=== PATIENT | male | born 2005 | race Caucasian/White ===

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

== ENCOUNTER → 2024-01-09 | Outpatient (CLI) | payer OTHER ==
[2024-01-09 12:19] LABS: TOTAL PROTEIN 7.4 gm/dL (6.0-8.0)
[2024-01-10 06:09] LABS: HBSAG Negative (Negative); HEP B CORE AB, IGM Negative (Negative); HEPATITIS C ANTIBODY Non Reactive (Non Reactive)
== END | disposition home or self-care (01) ==
LOC: LAB 11:22
PROVIDERS: ATTEND Nurse Practitioner Family
DX: E78.2 Mixed hyperlipidemia (principal); R79.89 Other specified abnormal findings of blood chemistry

== ENCOUNTER → 2024-01-21 | Outpatient (CLI) | payer OTHER | END | disposition home or self-care (01) | LOC: US 08:33 | PROVIDERS: ATTEND Nurse Practitioner Family | DX: K76.0 Fatty (change of) liver, not elsewhere classified (principal); R16.0 Hepatomegaly, not elsewhere classified; R79.89 Other specified abnormal findings of blood chemistry ==